=== PATIENT | female | born 1985 | race Caucasian/White ===

== ENCOUNTER 2018-10-28 09:51 | Emergency (ER) | payer OTHER ==
[2018-10-28] MEDS ORDERED: Albuterol/Ipratropium 3.0-0.5 MG/3 ML Neb Soln NEB ONE (10:11)
[2018-10-28] MEDS ORDERED: Codeine/Promethazine 10-6.25 MG/5 ML Syrup 5 ML UD Cup PO STA (10:16)
--- NOTE | 2018-10-28 10:28 | EDM.PDOC ---
ED HPI GENERAL MEDICAL PROBLEM - General Chief Complaint: Respiratory Problem Stated Complaint: COLD SYMPTOMS Time Seen by Provider: 10/28/18 10:08 Source of Information: Reports: Patient History Limitations: Reports: No Limitations - History of Present Illness INITIAL COMMENTS - FREE TEXT/NARRATIVE: HISTORY AND PHYSICAL: History of present illness: Patient is a 33-year-old female who presents to the emergency room with complaints of cough. She states for the last 2 weeks she has had a cough that has been persistent and describes episodes of coughing spells where she is unable to catch her breath. She does not have any history of lung problems. She denies any fever, chills, chest pain, shortness of breath. She denies any abdominal pain, nausea, vomiting, diarrhea, constipation or dysuria. She has been able to eat and drink appropriately. Did not receive the influenza vaccine. Denies any chance of Review of systems: As per history of present illness and below otherwise all systems reviewed and negative. Past medical history: As per history of present illness and as reviewed below otherwise noncontributory. Surgical history: As per history of present illness and as reviewed below otherwise noncontributory. Social history: See social history for further information Family history: As per history of present illness and as reviewed below otherwise noncontributory. Physical exam: General: Well-developed and well-nourished 33-year-old female. Alert and oriented. Nontoxic appearing and in no acute distress. HEENT: Atraumatic, normocephalic, pupils equal and reactive bilaterally, negative for conjunctival pallor or scleral icterus, mucous membranes moist, TMs normal bilaterally, throat clear, neck supple, nontender, trachea midline. No drooling or trismus noted. No meningeal signs. No hot potato voice noted. Lungs: Slightly diminished to the right posterior base otherwise clear, breath sounds equal bilaterally, chest nontender. Loose productive cough noted. Heart: S1S2, regular rate and rhythm without overt murmur Abdomen: Soft, nondistended, nontender. Negative for masses or hepatosplenomegaly. Negative for costovertebral tenderness. Pelvis: Stable nontender. Genitourinary: Deferred. Rectal: Deferred. Skin: Intact, warm, dry. No lesions or rashes noted. Extremities: Atraumatic, negative for cords or calf pain. Neurovascular unremarkable. Neuro: Awake, alert, oriented. Cranial nerves II through XII unremarkable. Cerebellum unremarkable. Motor and sensory unremarkable throughout. Exam nonfocal. Notes: I did offer to check a urine prior to getting the chest x-ray, she declines. Chest x-ray is unremarkable. I will treat the patient with antibiotics, steroids and cough medication. Supportive care measures were reviewed and discussed. She voices understanding and is agreeable to plan of care. Denies any further questions or concerns at this time. Diagnostics: Chest x-ray Therapeutics: Duo Neb and Phenergan with Codeine Prescription: Z-Bala and Medrol Dosepak Phenergan with codeine (#4oz) Impression: Bronchitis Plan: 1. Please take the antibiotic and steroid as directed. 2. Supportive Care: Tylenol and/or Ibuprofen as needed for pain and fever management. Phenergan with Codeine for moderate to severe pain; may cause drowsiness - so do not take while driving or needing to be functioning outside the house. 3. Follow up with your primary care provider in the next 1-2 days. Return to the ED as needed and as discussed. Definitive disposition and diagnosis as appropriate pending reevaluation and review of above. - Related Data Allergies Allergy/AdvReac Type Severity Reaction Status Date / Time No Known Allergies Allergy Verified 10/28/18 09:59 Home Meds: Home Meds Norgestimate-Ethinyl Estradiol [Sprintec 28 Day Tablet] 1 tab DAILY 10/28/18 [ History] Past Medical History - Past Health History Medical/Surgical History: Denies Medical/Surgical History Gastrointestinal History: Reports: Other (See Below) Other Gastrointestinal History: acid reflux DIRECTOR OF RADIOLOGY History: Reports: Psychiatric History: Reports: Anxiety Hematologic History: Reports: None - Infectious Disease History Infectious Disease History: Reports: None - Past Surgical History HEENT Surgical History: Reports: Adenoidectomy, Oral Surgery, Tonsillectomy Social & Family History - Family History Family Medical History: Noncontributory - Tobacco Use Smoking Status *Q: Never Smoker - Caffeine Use Caffeine Use: Reports: Coffee, Soda - Recreational Drug Use Recreational Drug Use: No ED ROS GENERAL - Review of Systems Review Of Systems: ROS reveals no pertinent complaints other than HPI. ED EXAM, GENERAL - Physical Exam Exam: See Below (See dictation) Course - Vital Signs Last Recorded V/S: Last Vital Signs Temp 97.7 F 10/28/18 09:58 Pulse 82 10/28/18 09:58 Resp 20 10/28/18 09:58 BP 137/96 H 10/28/18 09:58 Pulse Ox 96 10/28/18 10:11 - Orders/Labs/Meds Orders: Active Orders 24 hr Category Date Time Status RT Aerosol Therapy [RC] ASDIRECTED Care 10/28/18 10:11 Active Chest 2V [CR] Stat Exams 10/28/18 10:11 Taken Meds: Medications Discontinued Medications Generic Name Dose Route Start Last Admin Trade Name Fremargarita PRN Reason Stop Dose Admin Albuterol/Ipratropium 3 ml 10/28/18 10:11 10/28/18 10:20 Duoneb 3.0-0.5 Mg/3 Ml NEB 10/28/18 10:12 3 ml ONETIME ONE Administration Promethazine HCl/Codeine 5 ml 10/28/18 10:16 10/28/18 10:40 Phenergan With Codeine PO 10/28/18 10:17 5 ml NOW STA Administration Departure - Departure Time of Disposition: 11:04 Disposition: Home, Self-Care 01 Clinical Impression: Bronchitis - Discharge Information Instructions: Acute Bronchitis, Adult, [id number] Referrals: Fredi Swenson MD [Primary Care Provider] - Forms: ED Department Discharge Additional Instructions: The following information is given to patients seen in the emergency department who are being discharged to home. This information is to outline your options for follow-up care. We provide all patients seen in our emergency department with a follow-up referral. The need for follow-up, as well as the timing and circumstances, are variable depending upon the specifics of your emergency department visit. If you don't have a primary care physician on staff, we will provide you with a referral. We always advise you to contact your personal physician following an emergency department visit to inform them of the circumstance of the visit and for follow-up with them and/or the need for any referrals to a consulting specialist. The emergency department will also refer you to a specialist when appropriate. This referral assures that you have the opportunity for follow-up care with a specialist. All of these measure are taken in an effort to provide you with optimal care, which includes your follow-up. Under all circumstances we always encourage you to contact your private physician who remains a resource for coordinating your care. When calling for follow-up care, please make the office aware that this follow-up is from your recent emergency room visit. If for any reason you are refused follow-up, please contact the [facility] Emergency Department at and asked to speak to the emergency department charge nurse. [facility] Primary Care [address] [place] [address] [facility] [address] [place] [address] 1. Please take the antibiotic and steroid as directed. 2. Supportive Care: Tylenol and/or Ibuprofen as needed for pain and fever management. Phenergan with Codeine for moderate to severe pain; may cause drowsiness - so do not take while driving or needing to be functioning outside the house. 3. Follow up with your primary care provider in the next 1-2 days. Return to the ED as needed and as discussed. - My Orders Last 24 Hours: My Active Orders 10/28/18 10:11 RT Aerosol Therapy [RC] ASDIRECTED Chest 2V [CR] Stat - Assessment/Plan Last 24 Hours: My Active Orders 10/28/18 10:11 RT Aerosol Therapy [RC] ASDIRECTED Chest 2V [CR] Stat
[2018-10-28 10:35] VITALS: BP 137/96
--- NOTE | 2018-10-28 11:04 | CR ---
EXAMINATION: Two-view chest (PA and Lateral views). HISTORY: Shortness of breath. FINDINGS: The trachea is midline. The cardiomediastinal silhouette is within normal limits. No pulmonary infiltrates, effusions or pneumothorax. Osseous structures appear unremarkable. IMPRESSION: No acute cardiopulmonary process.
== END 2018-10-28 11:16 | disposition home or self-care (01) ==
LOC: MW.ED 09:51
DX: J40 Bronchitis, not specified as acute or chronic (principal); Z98.890 Other specified postprocedural states
CPT/HCPCS: 71046; 94640; 99283; A9270; J7620-GY

== ENCOUNTER 2021-04-15 15:30 | Emergency (ER) | payer SELFPAY ==
[2021-04-15] MEDS ORDERED: Diphtheria,Pertussis(Acell),Tetanus Vaccine 0.5 ML Syringe IM ONE (15:49)
[2021-04-15] MEDS ORDERED: Octyl 2-Cyanoacrylate 1 Tube TOP ONE (15:50)
--- NOTE | 2021-04-15 15:57 | EDM.PDOC ---
ED HPI GENERAL MEDICAL PROBLEM - General Chief Complaint: Laceration Stated Complaint: LACERATION TO LEFT HAND Time Seen by Provider: 04/15/21 15:38 - History of Present Illness INITIAL COMMENTS - FREE TEXT/NARRATIVE: CHIEF COMPLAINT(S): I cut my hand HISTORY OF PRESENT ILLNESS: This is a 35-year-old woman without any significant past medical history who comes to the emergency department with a chief complaint of I cut my hand. The patient states that she cut her hand prior to arrival. She states that she was trying to use a straight blade to derma plane. She states that she accidentally cut her left palm. She states that it does hurt but it does not hurt that bad. She currently rates her pain as 3 out of 10. She denies any numbness, tingling or weakness. She states that she is able to operator helper and extend with her fingers. She denies any other injury. She states that her tetanus shot is not up-to-date. REVIEW OF SYSTEMS: Cardiovascular: Denies continued bleeding skin: Positive for laceration to left palm MSK: Denies decreased range of motion Neurological: Denies numbness, tingling, weakness PAST MEDICAL HISTORY: As per history of present illness and as reviewed below otherwise noncontributory. SURGICAL HISTORY: As per history of present illness and as reviewed below otherwise noncontributory. SOCIAL HISTORY: As per history of present illness and as reviewed below otherwise noncontributory. FAMILY HISTORY: As per history of present illness and as reviewed below otherwise noncontributory. EXAMINATION OF ORGAN SYSTEMS/BODY AREAS: Constitutional: Blood pressure is 136/90, heart rate 85, respiratory rate 16 with an oxygen saturation 95% on room air. Temperature 36.9 General: Overall well-appearing woman who is in no acute distress Psychiatric: Appropriate mood and affect. Denies SI or HI Cardiovascular: Regular, rate, and rhythm. No gallops, murmurs, or rubs. Bilateral upper extremity pulses symmetric and intact. Capillary refill less than 2 seconds in left upper extremity distally Respiratory: Lungs clear to auscultation bilaterally. No wheezes, rales, or rhonchi. Musculoskeletal: The patient has full range of motion of all the fingers of her left hand the patient is able to make an O and touch all of her fingers with her left thumb. No tendons are exposed. Skin: There is an approximately 2-1/2 cm laceration in the middle of the left palm which is superficial without any bone, tendons, or muscle exposed Neurological: Alert, GCS 15 distal sensation is intact of the left upper extremity MEDICAL DECISION MAKING AND COURSE IN THE ED WITH INTERPRETATION/REVIEW OF DIAGNOSTIC STUDIES: This is a 35-year-old and without any significant past medical history who comes to the emergency department with a superficial laceration to her left palm. At this time I did offer suture versus Dermabond with Steri-Strip repair. The patient would rather do Dermabond with Steri- Strip. I did discuss with her that I would like her to wash her hand in tap water for the next 10 to 15 minutes. I did discuss that we would update her tetanus. The patient's laceration is to her nondominant hand. Laceration Repair Note Repair of the 2.5 cm left palm wound was done by myself. Wound was irrigated well with saline. No foreign bodies were noted. The wound was repaired with Dermabond and Steri-Strips. Wound edges approximated well. After repair I did provide the patient with strict return precautions. She is to return for any new or worsening symptoms. She was amenable discharge at this time and had no further questions. DISPOSITION: The patient was discharged home in stable condition. The patient will follow up with primary care physician or emergency department for reevaluation in 5 to 7 days CONDITION: Fair PROCEDURES: Left palm laceration repair with Dermabond/Steri-Strips FINAL IMPRESSION(S)/DIAGNOSES: 1. Acute left palm laceration status post Dermabond/Steri-Strip repair Mario Donato M.D. left hand Pain Score (Numeric/FACES): 3 - Related Data Allergies Allergy/AdvReac Type Severity Reaction Status Date / Time No Known Allergies Allergy Verified 04/15/21 15:45 Home Meds: Home Meds norgestimate-ethinyl estradioL [Sprintec 28 Day Tablet] 1 tab DAILY 10/28/18 [History] Escitalopram Oxalate [Lexapro] 10 mg PO DAILY 04/15/21 [History] Past Medical History - Past Health History Medical/Surgical History: Denies Medical/Surgical History Gastrointestinal History: Reports: Other (See Below) Other Gastrointestinal History: acid reflux CLINICAL SUPPORT SPECIALIST History: Reports: Psychiatric History: Reports: Anxiety Hematologic History: Reports: None - Infectious Disease History Infectious Disease History: Reports: None - Past Surgical History HEENT Surgical History: Reports: Adenoidectomy, Oral Surgery, Tonsillectomy Social & Family History - Family History Family Medical History: No Pertinent Family History - Tobacco Use Tobacco Use Status *Q: Never Tobacco User - Caffeine Use Caffeine Use: Reports: Coffee, Soda - Recreational Drug Use Recreational Drug Use: No ED ROS GENERAL - Review of Systems Review Of Systems: See Below ED EXAM, SKIN/RASH Exam: See Below Course - Vital Signs Last Recorded V/S: Last Vital Signs Temp 36.9 C 04/15/21 15:43 Pulse 69 04/15/21 16:19 Resp 16 04/15/21 15:43 BP 130/85 04/15/21 16:19 Pulse Ox 98 04/15/21 16:19 - Orders/Labs/Meds Meds: Medications Discontinued Medications Generic Name Dose Route Start Last Admin Trade Name Freq PRN Reason Stop Dose Admin Diphtheria/Tetanus/Acell Pertussis 0.5 ml 04/15/21 15:49 04/15/21 16:06 Diphtheria,Pertussis(Acell),Tetanus Vaccine 0.5 Ml Syringe IM 04/15/21 15:50 0.5 ml .ONCE ONE Administration Octyl Cyanoacrylate 1 applic 04/15/21 15:50 04/15/21 16:07 Octyl 2-Cyanoacrylate 1 Tube TOP 04/15/21 15:51 1 applic ONETIME ONE Administration Departure - Departure Time of Disposition: 16:19 Disposition: Home, Self-Care 01 Condition: Fair Clinical Impression: Laceration - Discharge Information *PRESCRIPTION DRUG MONITORING PROGRAM REVIEWED*: No *COPY OF PRESCRIPTION DRUG MONITORING REPORT IN PATIENT SLIM: No Instructions: Sutures, Malachi, or Adhesive Wound Closure, [id number] Referrals: Fredi Swenson MD [Primary Care Provider] - Forms: ED Department Discharge Additional Instructions: You were evaluated today on an emergent basis. At this time you did have a cut to your left hand. We did repair it with skin glue and some Steri-Strips. These will eventually fall off. You may wash the area however I would not scrub the area. If you develop any redness, pus drainage, or swelling I would like you to return to the emergency department. Otherwise please follow-up with your primary care physician in 3 to 5 days for reevaluation [facility] [address] [place] [address] [facility] [address] [place] [id number] The patient is informed of any results of their evaluation and diagnostic workup and all questions are answered. They are given discharge instructions and return precautions. The patient is stable for discharge. The patient states they understand and agree with the plan and that they will return if their symptoms get worse or if they have any new concerns. The following information is given to patients seen in the emergency department who are being discharged to home. This information is to outline your options for follow-up care. We provide all patients seen in our emergency department with a follow-up referral. The need for follow-up, as well as the timing and circumstances, are variable depending upon the specifics of your emergency department visit. If you don't have a primary care physician on staff, we will provide you with a referral. We always advise you to contact your personal physician following an emergency department visit to inform them of the circumstance of the visit and for follow-up with them and/or the need for any referrals to a consulting specialist. The emergency department will also refer you to a specialist when appropriate. This referral assures that you have the opportunity for follow-up care with a s pecialist. All of these measure are taken in an effort to provide you with optimal care, which includes your follow-up. Under all circumstances we always encourage you to contact your private physici an who remains a resource for coordinating your care. When calling for follow-up care, please make the office aware that this follow-up is from your recent emergency room visit. If for any reason you are refused follow-up, please contact the [facility] Emergency Department at and asked to speak to the emergency department charge nurse. Sepsis Event Note (ED) - Evaluation Sepsis Screening Result: No Definite Risk
[2021-04-15 16:20] VITALS: BP 130/85; PULSE 69
== END 2021-04-15 16:20 | disposition home or self-care (01) ==
LOC: MW.ED 15:30
DX: S61.412A Laceration without foreign body of left hand, initial encounter (principal); Z23 Encounter for immunization; W26.8XXA Contact with other sharp object(s), not elsewhere classified, initial encounter
CPT/HCPCS: 12001; 90471; 90715; 99282; A9270